=== PATIENT | female | born 2000 | race American Indian/Alaskan Native ===

== ENCOUNTER 2018-09-10 15:17 | Emergency (ER) | payer SELFPAY ==
[2018-09-10 15:49] VITALS: BP 126/87
--- NOTE | 2018-09-10 15:54 | Event Note ---
ED Screening Note Date of service: 09/10/18 Time: 15:50 ED Screening Note: 18 y/o female comes in for sob times 1 year. No recent travels. on control [place] criteria for PE is low probability. VS are stable heart rate 67, 100% RA, 127/86. This initial assessment/diagnostic orders/clinical plan/treatment(s) is/are subject to change based on patients health status, clinical progression and re- assessment by fellow clinical providers in the ED. Further treatment and workup at subsequent clinical providers discretion. Patient/guardian urged not to elope from the ED as their condition may be serious if not clinically assessed and managed. Initial orders include:
--- NOTE | 2018-09-10 16:38 | XRay Report ---
CHEST PA AND LATERAL VIEWS INDICATION: sob. COMPARISON: None. FINDINGS: Support devices: None. Heart: Within normal limits. Lungs/Pleura: No acute pulmonary or pleural findings. IMPRESSION: 1. No significant abnormality. Signer Name: Lauro Henning MD Signed: 09/10/2018 4:33 PM Workstation Name: [id number]
--- NOTE | 2018-09-10 17:12 | Emergency Department Report ---
Minor Respiratory - HPI Chief Complaint: Dyspnea/Respdistress Stated Complaint: SOB Time Seen by Provider: 09/10/18 15:49 Severity: mild Minor Respiratory: Yes Able to Tolerate Fluids, Yes Shortness of Breath, No Rhinorrhea, No Sore Throat, No Ear Pain, No Cough, No Sick Contacts, No Hemoptysis, No Chest Pain, No Fever Other History: 18 YO COMES TO ER WITH OVER 1 Y OF SOB. SHE HAD STOPPED EXER CISING AND THEN STARTED AGAIN AND HAS BEEN SOB. PT IS NOT OBESE. NO PMH. NO RX. CIG SMOKER. HER AUNT WANTED HER CHECKED ED Review of Systems ROS: Stated complaint: SOB Other details as noted in HPI Comment: All other systems reviewed and negative ED Past Medical Hx - Past Medical History Previous Medical History?: No - Surgical History Past Surgical History?: No - Family History Family history: no significant - Social History Smoking Status: Current Every Day Smoker Substance Use Type: Alcohol Minor Respiratory Exam - Exam General: Vital signs noted. No distress. Alert and acting appropriately. HEENT: Yes Moist Mucous Membranes, No Pharyngeal Erythema, No Pharyngeal Exudates, No Rhinorrhea, No Conjuctival Injection, No Frontal Tenderness, No Maxillary Tenderness Ear: Neither TM Bulge, Neither TM Erythema, Neither EAC Pain, Neither EAC Discharge Neck: Yes Supple, No Adenopathy Lungs: Yes Good Air Exchange, No Wheezes, No Ronchi, No Stridor, No Cough, No Labored Respirations, No Retractions, No Use of Accessory Muscles, No Other Abnormal Lung Sounds Heart: Yes Regular, No Murmur Abdomen: Yes Normal Bowel Sounds, No Tenderness, No Peritoneal Signs Skin: No Rash, No Edema Neurologic: Alert and oriented, no deficits. Musculoskeletal: Unremarkable. ED Course Vital Signs 09/10/18 09/10/18 15:46 15:55 Temperature 98.3 F 98.3 F Pulse Rate 67 67 Blood Pressure 126/87 126/87 O2 Sat by Pulse 100 Oximetry ED Medical Decision Making - Radiology Data Radiology results: report reviewed, image reviewed - Medical Decision Making XRAY NEG PT REASSURED THAT SHE HAS NO INFECTION OR LUNG DISEASE I BELIEVE THERE IS A COMPONENT OF ANXIETY TO HER VISIT DC HOME WTIH CARDS AND PCP FOLLOW UP Vital Signs 09/10/18 09/10/18 15:46 15:55 Temperature 98.3 F 98.3 F Pulse Rate 67 67 Blood Pressure 126/87 126/87 O2 Sat by Pulse 100 Oximetry - Differential Diagnosis RO URTI Critical care attestation.: If time is entered above; I have spent that time in minutes in the direct care of this critically ill patient, excluding procedure time. ED Disposition Clinical Impression: Wellness examination, Smoker Disposition: DC-01 TO HOME OR SELFCARE Is pt being admited?: No Does the pt Need Aspirin: No Condition: Stable Instructions: Dyspnea (ED) Additional Instructions: STOP SMOKING FOLLOW UP WITH PCP AND OR CARDIOLOGY FOR FURTHER EVAL REFERRALS BELOW Referrals: SUZANNE GONZALES MD [Staff Physician] - 3-5 Days JOSE A HOOPER MD [Staff Physician] - 3-5 Days [facility] [Staff Physician] - 3-5 Days Time of Disposition: 17:11
== END 2018-09-10 17:30 | disposition home or self-care (01) ==
LOC: ED 15:17
DX: Z00.129 Encounter for routine child health examination without abnormal findings (principal)
CPT/HCPCS: 71046